=== PATIENT | male | born 1955 | race Two or more races ===

== ENCOUNTER 2023-03-21 16:15 | Inpatient (IN) | payer OTHER, MEDICAID ==
[~2023-03-21] VITALS: Ht 177.8 cm; Wt 105.0 kg
[2023-03-21 19:30] VITALS: RESP 20; O2SAT 98
[2023-03-21] MEDS ORDERED: MORPHINE SULFATE 4 MG/ML SYR/VIAL IV ONE (21:00)
[2023-03-21] MEDS ORDERED: ONDANSETRON HCL 4 MG/2 ML VIAL IV ONE (21:00)
[2023-03-21 21:29] LABS: Basophils # (auto) 0 10 ^3/uL (0-0.2); Eosinophils # (auto) 0.3 10 ^3/uL (0-0.8); Hemoglobin 11.7 g/dL (13.5-17.5); Lymphocytes # (auto) 1.3 10 ^3/uL (0.4-5.4); Monocytes # (auto) 0.5 10 ^3/uL (0-1.3); Neutrophils # (auto) 3.4 10 ^3/uL (1.6-8.6); White Blood Cell 5.5 10^3/uL (4.4-10.8)
[2023-03-21 21:32] LABS: Basophils % (auto) 0.7 % (0.0-2.0); Eosinophils % (auto) 4.8 % (0.0-7.0); Hematocrit 33.4 % (41.0-53.0); Mean Corpuscular Hemoglobin 34.9 pg (28.0-32.0); Mean Corpuscular Hgb Conc. 35.2 g/dL (32.0-36.0); Mean Corpuscular Volume 99.1 fL (80.0-100.0); Monocytes % (auto) 8.8 % (0.0-12.0); Neutrophils % (auto) 61.7 % (37.0-80.0); Nucleated Red Blood Cells % 0.1 %; Red Blood Cells 3.37 10^6/uL (4.5-5.90); Red Cell Distribution Width 16.6 % (11.8-14.3)
[2023-03-21 21:49] LABS: INR 1.36 (0.9-1.15)
[2023-03-21 21:50] LABS: Albumin 2.7 g/dL (3.4-5.0); BUN/Creatinine Ratio 22.4 (10.0-20.0); Calcium 8.3 mg/dL (8.5-10.1); Potassium 4.2 mmol/L (3.5-5.1)
[2023-03-21 21:52] LABS: Bilirubin, Total 2.6 mg/dL (0.2-1.0); Total Protein 7.5 g/dL (6.4-8.2)
[2023-03-21] MEDS ORDERED: hydrALAZINE HCL 10 MG TAB PO PRN (22:15)
[2023-03-21] MEDS ORDERED: ACETAMINOPHEN 325 MG TAB PO PRN (22:15)
[2023-03-21] MEDS ORDERED: ONDANSETRON HCL 4 MG/2 ML VIAL IV PRN (22:15)
[2023-03-21] MEDS ORDERED: HYDROcodone-ACET 5/325MG TAB PO PRN (22:15)
[2023-03-22] MEDS: D5W/SOD CHLO 0.9% 1,000 ML IV SCH ×2 (00:31→10:00)
[2023-03-22] MEDS: MORPHINE SULFATE INJ 2 MG/ml SYRG IV PRN ×5 (00:32→21:16)
[2023-03-22 01:59] LABS: Urine Bacteria FEW /hpf (None Seen); Urine Blood TRACE /uL (Negative); Urine Mucus FEW (None Seen); Urine Specific Gravity 1.025 (1.001-1.035); Urine WBC 50 /hpf (0 - 3)
[2023-03-22 06:31] LABS: BUN/Creatinine Ratio 25.8 (10.0-20.0); Calcium 8.1 mg/dL (8.5-10.1); Potassium 4.2 mmol/L (3.5-5.1)
[2023-03-22 06:33] LABS: Basophils # (auto) 0 10 ^3/uL (0-0.2); Basophils % (auto) 0.5 % (0.0-2.0); Eosinophils # (auto) 0.2 10 ^3/uL (0-0.8); Hemoglobin 10.8 g/dL (13.5-17.5); Lymphocytes # (auto) 1.3 10 ^3/uL (0.4-5.4); Neutrophils # (auto) 2.4 10 ^3/uL (1.6-8.6); Nucleated Red Blood Cells % 0.2 %; White Blood Cell 4.4 10^3/uL (4.4-10.8)
[2023-03-22 06:36] LABS: Eosinophils % (auto) 5.6 % (0.0-7.0); Hematocrit 29.8 % (41.0-53.0); Lymphocytes % (auto) 28.9 % (10.0-50.0); Mean Corpuscular Hgb Conc. 36.4 g/dL (32.0-36.0); Mean Corpuscular Volume 99.1 fL (80.0-100.0); Monocytes # (auto) 0.5 10 ^3/uL (0-1.3); Monocytes % (auto) 10.5 % (0.0-12.0); Neutrophils % (auto) 54.5 % (37.0-80.0); Red Blood Cells 3.01 10^6/uL (4.5-5.90); Red Cell Distribution Width 16.6 % (11.8-14.3)
[2023-03-22 08:00] VITALS: RESP 14; O2SAT 95
[2023-03-22 10:00] VITALS: PULSE 80; RESP 18; O2SAT 96
[2023-03-22 13:00] VITALS: BP 116/48; PULSE 54; RESP 20; TEMP 98.7; O2SAT 100
[2023-03-22] MEDS ORDERED: D5W/SOD CHLO 0.9% 1,000 ML IV SCH (14:00)
[2023-03-22] MEDS: cefTRIAXone 1GM/50ML D5W 50 ML IV SCH (14:17)
[2023-03-22] MEDS ORDERED: TRAM50TA2 PO (15:24)
[2023-03-22] MEDS ORDERED: PANT40TA2 PO (15:30)
[2023-03-22] MEDS ORDERED: LEVO112T4 PO (15:30)
[2023-03-22] MEDS: AZITHROMYCIN 500MG/ 250ML 250 ML IV SCH (15:56)
[2023-03-22 16:57] VITALS: BP 135/70; PULSE 80; RESP 16; TEMP 97.4; O2SAT 96
[2023-03-22] MEDS ORDERED: ONDANSETRON HCL 4 MG/2 ML VIAL IV PRN (17:45)
[2023-03-22] MEDS ORDERED: HYDROmorphone HCL 2 MG/ML VL/or syr IV PRN ×2 (17:45)
[2023-03-22 22:07] VITALS: BP_SYST 118; BP_SYST 121; BP_DIAS 58; BP_DIAS 88; PULSE 60; PULSE 61; RESP 18; RESP 20; TEMP 97.9; TEMP 98; O2SAT 96; O2SAT 97
[2023-03-23 05:00] VITALS: BP 130/68; PULSE 60; RESP 18; TEMP 97.5; O2SAT 96
[2023-03-23] MEDS: MORPHINE SULFATE INJ 2 MG/ml SYRG IV PRN ×2 (05:55→11:36)
[2023-03-23 06:38] LABS: Basophils # (auto) 0 10 ^3/uL (0-0.2); Eosinophils # (auto) 0.2 10 ^3/uL (0-0.8); Hemoglobin 10.1 g/dL (13.5-17.5); Monocytes # (auto) 0.4 10 ^3/uL (0-1.3); Neutrophils # (auto) 1.8 10 ^3/uL (1.6-8.6); Nucleated Red Blood Cells % 0.3 %; White Blood Cell 3.5 10^3/uL (4.4-10.8)
[2023-03-23 06:41] LABS: Basophils % (auto) 0.8 % (0.0-2.0); Eosinophils % (auto) 5.5 % (0.0-7.0); Hematocrit 28.4 % (41.0-53.0); Lymphocytes # (auto) 1.1 10 ^3/uL (0.4-5.4); Lymphocytes % (auto) 31.3 % (10.0-50.0); Mean Corpuscular Hemoglobin 35.4 pg (28.0-32.0); Mean Corpuscular Hgb Conc. 35.6 g/dL (32.0-36.0); Mean Corpuscular Volume 99.3 fL (80.0-100.0); Monocytes % (auto) 10.8 % (0.0-12.0); Neutrophils % (auto) 51.6 % (37.0-80.0); Red Blood Cells 2.86 10^6/uL (4.5-5.90); Red Cell Distribution Width 17.2 % (11.8-14.3)
[2023-03-23 06:55] LABS: Calcium 7.7 mg/dL (8.5-10.1); Potassium 4.2 mmol/L (3.5-5.1)
[2023-03-23 07:30] VITALS: TEMP 36.4
[2023-03-23 09:00] VITALS: BP_SYST 115; BP_SYST 152; BP_DIAS 106; BP_DIAS 58; PULSE 52; PULSE 63; RESP 16; TEMP 97.6; TEMP 97.7; O2SAT 95; O2SAT 98
[2023-03-23] MEDS: AZITHROMYCIN 500MG/ 250ML 250 ML IV SCH (10:42)
[2023-03-23] MEDS: cefTRIAXone 1GM/50ML D5W 50 ML IV SCH (10:42)
[2023-03-23 13:00] VITALS: BP 112/68; PULSE 76; RESP 16; TEMP 97.2; O2SAT 99
[2023-03-23 17:00] VITALS: BP 131/63; PULSE 63; RESP 16; TEMP 97.6; O2SAT 99
== END 2023-03-23 18:18 | disposition short-term general hospital (02) | DRG 535 ==
LOC: ER 16:15 → EDBD 16:15 → OVERFLOW 03-22 → WEST WING 03-22 09:48
PROVIDERS: ADMIT Nurse Practitioner Family; ATTEND Nurse Practitioner Family
DX: S72.145A Nondisplaced intertrochanteric fracture of left femur, initial encounter for closed fracture (principal); J18.9 Pneumonia, unspecified organism; N39.0 Urinary tract infection, site not specified; K74.60 Unspecified cirrhosis of liver; Z20.822 Contact with and (suspected) exposure to COVID-19; I51.7 Cardiomegaly; K21.9 Gastro-esophageal reflux disease without esophagitis; E03.9 Hypothyroidism, unspecified; W18.39XA Other fall on same level, initial encounter; Y93.89 Activity, other specified; Y92.89 Other specified places as the place of occurrence of the external cause; Y99.8 Other external cause status
CPT/HCPCS: 36415; 71045; 73502; 73562; 76705; 80048; 80053; 81001; 82962; 85025; 85610; 86850; 86900; 86901; 87086; 87088; 87186; 87426; 93306; 96374; 96375; G0378; J0696; J2405